=== PATIENT | female | born 1960 | race Asian ===

== ENCOUNTER 2017-09-15 21:51 | Emergency (ER) | payer BC ==
[~2017-09-15] VITALS: Ht 167.6 cm; Wt 64.9 kg
[~2017-09-15 21:51] MED LIST: ALPR0.2583 PO
[2017-09-15 21:57] VITALS: BP_SYST 115
[2017-09-15] MEDS ORDERED: NACL 0.9% 1,000 ML IV ONE (22:15)
[2017-09-15] MEDS ORDERED: ONDANSETRON 4 MG ODT TAB PO ONE (22:15)
[2017-09-15 22:30] LABS: BASOPHILS % (AUTO) 0.8 % (0.0-2.0); EOSINOPHILS % (AUTO) 0.2 % (0.0-4.0); HEMATOCRIT 38.6 % (36-48); LYMPHOCYTES # (AUTO) 1.3 K/uL (1.0-5.5); LYMPHOCYTES % (AUTO) 21.5 % (20.5-51.5); MEAN CORPUSCULAR HEMOGLOBIN 30 pg (27-31); MEAN CORPUSCULAR HGB CONC 34 % (32-36); MEAN CORPUSCULAR VOLUME 89 fL (79.0-98.0); MONOCYTES # (AUTO) 0.3 K/uL (0.0-1.0); MONOCYTES % (AUTO) 5.6 % (1.7-9.3); NEUTROPHILS # (AUTO) 4.4 K/uL (1.8-7.7); NEUTROPHILS % (AUTO) 71.9 % (40.0-70.0); PLATELET COUNT (AUTO) 166 K/uL (130-430); RED BLOOD CELL COUNT(AUTO) 4.32 MIL/uL (4.2-6.2); RED CELL DISTRIBUTION WIDTH 12.4 % (9.0-15.0)
[2017-09-15 22:30] LABS: BILIRUBIN,URINE NEGATIVE (NEGATIVE); BLOOD, URINE NEGATIVE (NEGATIVE); CLARITY/URINE CLOUDY (CLEAR); COLOR,URINE YELLOW (YELLOW); GLUCOSE,URINE NEGATIVE (NEGATIVE); KETONES,URINE 1+ (NEGATIVE); LEUKOCYTE ESTERASE ,URINE NEGATIVE (NEGATIVE); NITRITE, URINE NEGATIVE (NEGATIVE); PH,URINE 7.5 (5.0-8.0); PROTEIN URINE NEGATIVE (NEGATIVE); UROBILINOGEN,URINE 0.2 (0.2-1.0)
[2017-09-15 22:37] LABS: BACTERIA,URINE FEW /HPF (None Seen); MUCUS,URINE None Seen /LPF (None Seen); RBC,URINE 0-3 /HPF (0-3); URINE AMORPHOUS PHOSPHATES 4+ /HPF (None Seen); WBC,URINE 0-3 /HPF (0-3)
[2017-09-15 22:42] LABS: CALCIUM 8.5 mg/dL (8.4-11.0); CREATININE 0.68 mg/dL (0.55-1.30); POTASSIUM 3.2 mmol/L (3.5-5.1)
[2017-09-15 22:46] LABS: TOTAL BILIRUBIN 0.5 mg/dL (0.0-1.0)
[2017-09-15 23:06] VITALS: BP_SYST 119
== END 2017-09-15 23:06 | disposition home or self-care (01) ==
LOC: SED 21:51
DX: K52.9 Noninfective gastroenteritis and colitis, unspecified (principal); E87.6 Hypokalemia; E78.00 Pure hypercholesterolemia, unspecified; Z86.718 Personal history of other venous thrombosis and embolism
CPT/HCPCS: 36415; 80053; 81000; 83690; 85025; 96360; 99284; J7030; Q0162

== ENCOUNTER 2018-04-27 22:21 | Emergency (ER) | payer BC ==
[~2018-04-27] VITALS: Ht 165.1 cm; Wt 64.9 kg
[~2018-04-27 22:21] MED LIST changes: +ALPR0.25 PO; -ALPR0.2583 PO
[2018-04-27 23:25] VITALS: BP_SYST 121
--- NOTE | 2018-04-27 23:25 | NUR ---
Pt ambulatory to bed 1 for evaluation. Hooked to monitor
--- NOTE | 2018-04-27 23:30 | NUR ---
Patient AOx4, ambulatory, presents to ER with complaint of intermittent sudden right-sided chest pain radiating to back x1 day. Patient states she was not over exerting self but was doing chores. Medicated with Tramadol for lower back pain earlier today. No other symptoms or complaints.
--- NOTE | 2018-04-27 23:38 | NUR ---
ER MD Dunlap at bedside for medical evaluation.
[2018-04-27] MEDS ORDERED: NACL 0.9% 1,000 ML IV ONE (23:43)
[2018-04-27] MEDS ORDERED: ASPIRIN 81 MG TAB.CHEW PO ONE (23:45)
[2018-04-28 00:18] LABS: BASOPHILS % (AUTO) 0.6 % (0.0-2.0); EOSINOPHILS # (AUTO) 0.1 K/uL (0.0-0.4); EOSINOPHILS % (AUTO) 1.4 % (0.0-4.0); HEMATOCRIT 38.3 % (36-48); HEMOGLOBIN 12.3 g/dL (12.0-16.0); LYMPHOCYTES # (AUTO) 1.6 K/uL (1.0-5.5); LYMPHOCYTES % (AUTO) 23.9 % (20.5-51.5); MEAN CORPUSCULAR HEMOGLOBIN 29 pg (27-31); MEAN CORPUSCULAR HGB CONC 32 % (32-36); MEAN CORPUSCULAR VOLUME 90 fL (79.0-98.0); MONOCYTES # (AUTO) 0.6 K/uL (0.0-1.0); MONOCYTES % (AUTO) 9.1 % (1.7-9.3); NEUTROPHILS # (AUTO) 4.5 K/uL (1.8-7.7); PLATELET COUNT (AUTO) 177 K/uL (130-430); RED BLOOD CELL COUNT(AUTO) 4.23 MIL/uL (4.2-6.2); RED CELL DISTRIBUTION WIDTH 12.9 % (9.0-15.0); WHITE BLOOD COUNT (AUTO) 6.8 K/uL (4.8-10.8)
[2018-04-28 00:25] LABS: ANION GAP 8 (5-15); CHLORIDE 104 mmol/L (98-107); GLUCOSE 96 mg/dL (70-99); POTASSIUM 3.6 mmol/L (3.5-5.1); SODIUM SERUM 140 mmol/L (136-145); UREA NITROGEN, BLOOD 12 mg/dL (8-21)
[2018-04-28 00:35] LABS: ALANINE AMINOTRANSFERASE 26 U/L (12-78); ALBUMIN 3.6 g/dL (3.4-4.8); ASPARTATE AMINOTRANSFERASE 25 U/L (10-37); GFR AFRICAN AMERICAN 111 mL/min (>90); TOTAL BILIRUBIN 0.4 mg/dL (0.0-1.0)
--- NOTE | 2018-04-28 00:42 | NUR ---
No adverse reactions noted after medication administration. Will continue to monitor.
[2018-04-28 01:11] VITALS: BP_SYST 124
--- NOTE | 2018-04-28 01:11 | NUR ---
Patient given written and verbal discharge instructions and verbalizes understanding. ER MD discussed with patient the results and treatment provided. Patient in stable condition. ID arm band removed. IV catheter removed intact and dressing applied, no active bleeding. Rx of Motrin given. Patient educated on pain management and to follow up with PMD. Pain Scale 0/10. Opportunity for questions provided and answered. Medication side effect fact sheet provided.
== END 2018-04-28 01:11 | disposition home or self-care (01) ==
LOC: SED 22:21
DX: R25.2 Cramp and spasm (principal); E78.00 Pure hypercholesterolemia, unspecified; Z86.718 Personal history of other venous thrombosis and embolism
CPT/HCPCS: 36415; 71045; 80053; 84484; 85025; 93005; 99284; J7030

== ENCOUNTER 2018-12-27 10:22 | Emergency (ER) | payer BC ==
[~2018-12-27] VITALS: Ht 167.6 cm; Wt 63.5 kg
[2018-12-27 10:22] VITALS: BP_SYST 138
--- NOTE | 2018-12-27 10:22 | NUR ---
BROUGHT BACK TO BED #3 AND TRIAGED. REPORT GIVEN TO JANE
--- NOTE | 2018-12-27 10:24 | NUR ---
Placed in room 3 . Placed on environmental monitoring specialist, blood pressure machine and pulse oximeter. To gown for exam. Side rails up.
--- NOTE | 2018-12-27 10:30 | NUR ---
pt arrives with intermittent CP associated with nausea and burping. Pt does not report any SOB or distress. EKG done and cardaic monitor placed.
--- NOTE | 2018-12-27 10:38 | NUR ---
ER at bedside examining patient.
[2018-12-27 11:07] LABS: EOSINOPHILS # (AUTO) 0.1 K/uL (0.0-0.4); EOSINOPHILS % (AUTO) 1.9 % (0.0-4.0); HEMATOCRIT 40.3 % (36-48); HEMOGLOBIN 13.3 g/dL (12.0-16.0); LYMPHOCYTES # (AUTO) 1.3 K/uL (1.0-5.5); MEAN CORPUSCULAR HEMOGLOBIN 30 pg (27-31); MEAN CORPUSCULAR HGB CONC 33 % (32-36); MEAN CORPUSCULAR VOLUME 91 fL (79.0-98.0); MONOCYTES # (AUTO) 0.4 K/uL (0.0-1.0); MONOCYTES % (AUTO) 8.7 % (1.7-9.3); NEUTROPHILS # (AUTO) 2.9 K/uL (1.8-7.7); NEUTROPHILS % (AUTO) 60.4 % (40.0-70.0); PLATELET COUNT (AUTO) 154 K/uL (130-430); RED BLOOD CELL COUNT(AUTO) 4.44 MIL/uL (4.2-6.2); RED CELL DISTRIBUTION WIDTH 13.5 % (9.0-15.0); WHITE BLOOD COUNT (AUTO) 4.7 K/uL (4.8-10.8)
--- NOTE | 2018-12-27 11:15 | NUR ---
pt getting blood drawn at the bedside.
[2018-12-27 11:19] LABS: CALCIUM 9.3 mg/dL (8.4-11.0); CHLORIDE 102 mmol/L (98-107); CREATININE 0.78 mg/dL (0.55-1.30); GLUCOSE 115 mg/dL (70-99); POTASSIUM 3.9 mmol/L (3.5-5.1); SODIUM SERUM 134 mmol/L (136-145); UREA NITROGEN, BLOOD 12 mg/dL (8-21)
[2018-12-27 11:21] LABS: GFR AFRICAN AMERICAN 98 mL/min (>90)
[2018-12-27 11:22] LABS: ANION GAP < 3 (5-15); PROTHROMBIN TIME 10.4 SECS (9.5-12.5)
[2018-12-27 11:24] LABS: ALANINE AMINOTRANSFERASE 48 U/L (12-78); ALBUMIN 3.8 g/dL (3.4-4.8); ASPARTATE AMINOTRANSFERASE 30 U/L (10-37); TOTAL BILIRUBIN 0.7 mg/dL (0.0-1.0)
--- NOTE | 2018-12-27 11:54 | NUR ---
Patient given written and verbal discharge instructions and verbalizes understanding. ER MD discussed with patient the results and treatment provided. Patient in stable condition. ID arm band removed. Rx of Nexium 40mg and Aluminum Hydroxide 200mg given. Patient educated on pain management and to follow up with PMD. Pain Scale 3/10. Opportunity for questions provided and answered. Medication side effect fact sheet provided.
[2018-12-27 12:02] VITALS: BP_SYST 138
== END 2018-12-27 11:54 | disposition home or self-care (01) ==
LOC: SED 10:22
DX: K20.9 Esophagitis, unspecified (principal); Z86.718 Personal history of other venous thrombosis and embolism
CPT/HCPCS: 36415; 71045; 80053; 84484; 84703; 85025; 85610-TC; 85730-TC; 93005; 99284

== ENCOUNTER 2021-05-04 16:29 | Emergency (ER) | payer BC, SELFPAY ==
[~2021-05-04] VITALS: Ht 165.1 cm; Wt 70.8 kg
[2021-05-04 16:35] VITALS: BP_SYST 149
[2021-05-04] MEDS ORDERED: IOHEXOL 350 mgI/mL, 150 ML INFUS..BTL IV ONE (17:07)
--- NOTE | 2021-05-04 17:17 | NUR ---
ct angio chest consent signed by patient. iv to left ac blood to lab
[2021-05-04 17:45] LABS: HEMATOCRIT 39.3 % (36-48); HEMOGLOBIN 13.1 g/dL (12.0-16.0); MEAN CORPUSCULAR HEMOGLOBIN 29 pg (27-31); MEAN CORPUSCULAR HGB CONC 33 % (32-36); MEAN CORPUSCULAR VOLUME 88 fL (79.0-98.0); PLATELET COUNT (AUTO) 176 K/uL (130-430); RED BLOOD CELL COUNT(AUTO) 4.49 MIL/uL (4.2-6.2); RED CELL DISTRIBUTION WIDTH 12.8 % (9.0-15.0); WHITE BLOOD COUNT (AUTO) 3.6 K/uL (4.8-10.8)
[2021-05-04 17:52] LABS: CALCIUM 8.8 mg/dL (8.4-11.0); CREATININE 0.73 mg/dL (0.55-1.30); POTASSIUM 3.6 mmol/L (3.5-5.1)
[2021-05-04 18:02] LABS: ALBUMIN 3.8 g/dL (3.4-4.8); PHOSPHORUS 4.2 mg/dL (2.7-4.5); TOTAL BILIRUBIN 0.3 mg/dL (0.0-1.0)
[2021-05-04 18:38] LABS: INR 0.9 (0.8-1.2); PROTHROMBIN TIME 9.7 SECS (9.5-12.5)
--- NOTE | 2021-05-04 19:17 | NUR ---
REPORT TO JAMA
--- NOTE | 2021-05-04 19:17 | NUR ---
Assumed care of patient at change of shift. Introduced self to patient, positioned for comfort and safety w/ bed to low position sr up. Patient resting quietly. No acute distress noted. Vital signs within normal range.
[2021-05-04 19:44] LABS: ATYPICAL LYMPHOCYTES % 5 % (0-0); BAND % (MANUAL) 4 % (0-6); BASOPHILS % (MANUAL) 0 % (0-2); EOSINOPHILS % (MANUAL) 2 % (0-7); LYMPHOCYTES % (MANUAL) 26 % (20-46); MONOCYTES % (MANUAL) 10 % (0-11)
[2021-05-04] MEDS ORDERED: ACET-2634 PO (19:48)
[2021-05-04 20:10] VITALS: BP_SYST 103
--- NOTE | 2021-05-04 20:10 | NUR ---
Patient given written and verbal discharge instructions and verbalizes understanding. ER MD discussed with patient the results and treatment provided. Patient in stable condition. ID arm band removed. IV catheter removed intact and dressing applied, no active bleeding. Rx of given. Patient educated on pain management and to follow up with PMD. Pain Scale 0. Opportunity for questions provided and answered. Medication side effect fact sheet provided.
== END 2021-05-04 20:10 | disposition home or self-care (01) ==
LOC: SED 16:29
DX: R07.89 Other chest pain (principal); R94.31 Abnormal electrocardiogram [ECG] [EKG]; Z86.16 Personal history of COVID-19; Z79.899 Other long term (current) drug therapy
CPT/HCPCS: 36415; 71045; 71275; 76376; 80053; 83690; 83735; 83880; 84100; 84484; 85007; 85027; 85379; 85610; 85730; 93005; 99285; Q9967

== ENCOUNTER 2022-01-28 21:30 | Emergency (ER) | payer BC ==
[~2022-01-28] VITALS: Ht 167.6 cm; Wt 70.3 kg
[~2022-01-28 21:30] MED LIST changes: +ACET-2634 PO
[2022-01-28 21:35] VITALS: BP_SYST 145
== END 2022-01-28 22:49 | disposition left against medical advice (07) ==
LOC: SED 21:30
DX: R51.9 Headache, unspecified (principal); Z53.21 Procedure and treatment not carried out due to patient leaving prior to being seen by health care provider

== ENCOUNTER 2022-05-20 15:40 | Emergency (ER) | payer BC ==
[~2022-05-20] VITALS: Ht 167.6 cm; Wt 68.0 kg
[2022-05-20 15:58] VITALS: BP_SYST 117
--- NOTE | 2022-05-20 16:20 | NUR ---
MD BUAGHAW IN TRIAGE FOR MSE.
[2022-05-20] MEDS ORDERED: MEGE20TA3 PO (16:29)
[2022-05-20] MEDS ORDERED: CRAN450T9 PO (16:29)
[2022-05-20] MEDS ORDERED: ARGI1POW13 PO (16:29)
[2022-05-20] MEDS ORDERED: ACET325T PO (16:29)
[2022-05-20] MEDS ORDERED: ZINC100T2 PO (16:29)
[2022-05-20] MEDS ORDERED: OMEP20CA15 PO (16:29)
[2022-05-20] MEDS ORDERED: INSU100I26 SQ (16:29)
[2022-05-20] MEDS ORDERED: LEVO100T PO (16:29)
[2022-05-20] MEDS ORDERED: METO25TA6 PO (16:29)
[2022-05-20] MEDS ORDERED: VITD2000 PO (16:29)
[2022-05-20] MEDS ORDERED: FOLI-43 PO (16:29)
[2022-05-20] MEDS ORDERED: AMIN30LI2 PO (16:29)
[2022-05-20] MEDS ORDERED: HYDR-4038 PO (16:29)
[2022-05-20] MEDS ORDERED: ASCO500T20 PO (16:29)
[2022-05-20] MEDS ORDERED: DILT60TA3 PO (16:29)
[2022-05-20] MEDS ORDERED: DOCU-156 PO (16:29)
[2022-05-20] MEDS ORDERED: MULT-1117 PO (16:29)
[2022-05-20] MEDS ORDERED: FERR240T5 PO (16:29)
[2022-05-20] MEDS ORDERED: ASA81 PO (16:29)
[2022-05-20] MEDS ORDERED: MOM PO (16:45)
[2022-05-20 16:49] VITALS: BP_SYST 121
--- NOTE | 2022-05-20 16:49 | NUR ---
Patient given written and verbal discharge instructions and verbalizes understanding. ER MD discussed with patient the results and treatment provided. Patient in stable condition. ID arm band removed. IV catheter removed intact and dressing applied, no active bleeding. Rx of MILK OF MAGNESIA given. Patient educated on pain management and to follow up with PMD. Pain Scale 0/10. Opportunity for questions provided and answered. Medication side effect fact sheet provided.
== END 2022-05-20 16:49 | disposition home or self-care (01) ==
LOC: SED 15:40
DX: K60.2 Anal fissure, unspecified (principal); K62.5 Hemorrhage of anus and rectum; Z79.899 Other long term (current) drug therapy
CPT/HCPCS: 99282

== ENCOUNTER 2022-05-28 08:17 | Emergency (ER) | payer BC ==
[~2022-05-28] VITALS: Ht 165.1 cm; Wt 68.0 kg
[~2022-05-28 08:17] MED LIST changes: -ACET-2634 PO; -ALPR0.25 PO; +MOM PO
[2022-05-28 08:29] VITALS: BP_SYST 147
--- NOTE | 2022-05-28 08:30 | NUR ---
Placed in room 04 . Placed on beekeeper farmer, blood pressure machine and pulse oximeter. To gown for exam. Side rails up. Report given to ELEAZAR HOANG.
--- NOTE | 2022-05-28 08:45 | NUR ---
PT BIB SELF AWAKE AND ALERT AOX4. NO SOB OR DISTRESS. PT C/O CHEST PAIN, RADIATING TO HER BACK. PT DENIES N/V. PT STATES PAIN 5/10. PT HAS HX OF DVT, PE, BREAST CANCER, HDL, OVERACTIVE BLADDER.
--- NOTE | 2022-05-28 08:50 | NUR ---
MD DR TRUONG AT BEDSIDE
[2022-05-28 09:20] LABS: BASOPHILS % (AUTO) 1.2 % (0.0-2.0); EOSINOPHILS # (AUTO) 0.1 K/uL (0.0-0.4); EOSINOPHILS % (AUTO) 2.3 % (0.0-4.0); HEMATOCRIT 38.6 % (36-48); HEMOGLOBIN 12.7 g/dL (12.0-16.0); LYMPHOCYTES # (AUTO) 1.2 K/uL (1.0-5.5); LYMPHOCYTES % (AUTO) 29.5 % (20.5-51.5); MEAN CORPUSCULAR HEMOGLOBIN 29 pg (27-31); MEAN CORPUSCULAR HGB CONC 33 % (32-36); MEAN CORPUSCULAR VOLUME 89 fL (79.0-98.0); MONOCYTES # (AUTO) 0.5 K/uL (0.0-1.0); NEUTROPHILS # (AUTO) 2.1 K/uL (1.8-7.7); PLATELET COUNT (AUTO) 191 K/uL (130-430); RED BLOOD CELL COUNT(AUTO) 4.33 MIL/uL (4.2-6.2); RED CELL DISTRIBUTION WIDTH 13.1 % (9.0-15.0); WHITE BLOOD COUNT (AUTO) 3.9 K/uL (4.8-10.8)
[2022-05-28 09:28] LABS: ANION GAP 7 (5-15); CALCIUM 9.5 mg/dL (8.4-11.0); CHLORIDE 104 mmol/L (98-107); CREATININE 0.63 mg/dL (0.55-1.30); GLUCOSE 100 mg/dL (70-99); UREA NITROGEN, BLOOD 13 mg/dL (8-21)
[2022-05-28 09:29] LABS: GFR AFRICAN AMERICAN 124 mL/min (>90)
[2022-05-28 09:37] LABS: ALANINE AMINOTRANSFERASE 35 U/L (12-78); ALBUMIN 3.8 g/dL (3.4-4.8); ASPARTATE AMINOTRANSFERASE 27 U/L (10-37); TOTAL BILIRUBIN 0.6 mg/dL (0.0-1.0)
[2022-05-28 11:39] VITALS: BP_SYST 147
--- NOTE | 2022-05-28 11:40 | NUR ---
Patient given written and verbal discharge instructions and verbalizes understanding. ER MD discussed with patient the results and treatment provided. Patient in stable condition. ID arm band removed. NO Rx given. Patient educated on pain management and to follow up with PMD. Pain Scale 0/10. Opportunity for questions provided and answered. Medication side effect fact sheet provided.
--- NOTE | 2022-05-28 11:41 | NUR ---
Note undone in EDM - 05/28/22 at 1142 by AYESHA Patient given written and verbal discharge instructions and verbalizes understanding. ER MD DR RAMSEY discussed with patient the results and treatment provided. Patient in stable condition. ID arm band removed. IV catheter removed intact and dressing applied, no active bleeding. Patient educated on pain management and to follow up with PMD. Pain Scale 2/10. Opportunity for questions provided and answered. Medication side effect fact sheet provided.
== END 2022-05-28 11:41 | disposition home or self-care (01) ==
LOC: SED 08:17
DX: R07.89 Other chest pain (principal); R06.02 Shortness of breath; E78.5 Hyperlipidemia, unspecified; Z79.899 Other long term (current) drug therapy
CPT/HCPCS: 36415; 71045; 80053; 83880; 84484; 85025; 85379; 93005; 99284

== ENCOUNTER 2022-12-01 02:47 | Emergency (ER) | payer BC ==
[~2022-12-01] VITALS: Ht 165.1 cm; Wt 70.3 kg
[2022-12-01] MEDS ORDERED: FLUORESCEIN SODIUM 1 MG OPHTHALMIC STRIP OP ONE (03:00)
[2022-12-01 03:01] VITALS: BP_SYST 145; PULSE 64; RESP 16; TEMP 97.9; O2SAT 98
[2022-12-01] MEDS ORDERED: TETRACAINE HCL/PF 0.5% OPHTHALMIC DROPS 4 ML OP ONE (03:30)
[2022-12-01] MEDS ORDERED: HYDR-3927 PO (03:34)
[2022-12-01] MEDS ORDERED: CIPR5DRO LEFT EYE (03:34)
[2022-12-01 03:46] VITALS: BP_SYST 127; PULSE 56; RESP 18; TEMP 97.9; O2SAT 95
== END 2022-12-01 03:46 | disposition home or self-care (01) ==
LOC: SED 02:47
DX: S05.02XA Injury of conjunctiva and corneal abrasion without foreign body, left eye, initial encounter (principal); E78.5 Hyperlipidemia, unspecified; Z85.3 Personal history of malignant neoplasm of breast; Z79.899 Other long term (current) drug therapy; X58.XXXA Exposure to other specified factors, initial encounter; Y93.89 Activity, other specified; Y92.89 Other specified places as the place of occurrence of the external cause; Y99.8 Other external cause status
CPT/HCPCS: 99283